=== PATIENT | male | born 1985 | race Caucasian/White ===

== ENCOUNTER 2024-06-06 16:59 | Emergency (ER) | payer OTHER, SELFPAY ==
--- NOTE | ~2024-06-06 | XR_ITS ---
EXAMINATION: XR ribs RT 2V w CXR 2V DATE: 06/06/2024 18:42 INDICATION: Right rib pain. Injury. TECHNIQUE: Frontal and lateral views of the chest and 2 views on 4 radiograph of the right ribs were obtained. COMPARISON: Chest 2 views 08/17/2018 FINDINGS: CHEST TWO VIEWS: There is no pneumonia, pleural effusion, or pneumothorax. The heart size is normal. RIGHT RIBS: There is a fracture of right fourth rib. IMPRESSION: 1. Right fourth rib fracture. Reviewed, dictated and finalized at location A. MACEUTICAL PROCESS ENGINEER
--- NOTE | ~2024-06-06 | XR_ITS ---
EXAMINATION: XR shoulder RT min 2V DATE: 06/06/2024 18:42 INDICATION: Right shoulder pain. Injury. TECHNIQUE: 4 views of right shoulder were obtained. COMPARISON: None. FINDINGS: Alignment is normal. There is a fracture of right fourth rib. Joint spaces are normal. IMPRESSION: 1. Right fourth rib fracture. Reviewed, dictated and finalized at location A. LE MACHINE OPERATOR
--- OUTSIDE RECORDS SUMMARY | 2024-06-06 17:01 | XMS_ITS | Clinical Summary ---
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
--- OUTSIDE RECORDS SUMMARY | 2024-06-06 17:01 | XMS_ITS | Encounter Summary ---
Author Organization [employer] Address 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
[2024-06-06 17:05] VITALS: BP 155/111; PULSE 104; RESP 20; TEMP 36.2; O2SAT 99
--- NOTE | 2024-06-06 18:25 | ED.UPPEXIN ---
HPI - Extremity Injury (Upper) General Chief Complaint: Extremity Injury, Upper <Marly Pulido PA-C - Last Filed: 06/07/24 02:49> Stated Complaint: R. shoulder pain, full ROM <Marly Pulido PA-C - Last Filed: 06/07/24 02:49> Time Seen by Provider: 06/06/24 18:25 <Marly Pulido PA-C - Last Filed: 06/07/24 02:49> Focused HPI: This is a 38 year old male that presents to the ER for right shoulder injury. Reports he was using a dejon to fix his car. Reports the dejon slipped and he was struck in the right shoulder. Reports bruising and pain to the area. Denies hitting his head, loss of consciousness, decreased range of motion, numbness. He is not on any blood thinners. GENERAL: Well-appearing, well-nourished, and in no acute distress. HEAD: Normocephalic, atraumatic. CHEST: Clear to auscultation. ?No respiratory distress. HEART: Regular rate and rhythm.? NEURO: ?Alert and oriented x3. Patient screened in triage and initial orders placed.? ?Additional care and disposition to be based upon?diagnostic testing and treatment. <Marly Pulido PA-C - Last Filed: 06/07/24 02:49> History of Present Illness HPI narrative: Agree with the HPI as above. Patient was able to self extricate and momentarily after being pinned by the Dejon and the car, complaining of some left-sided rib pain and shoulder pain. No overlying skin changes or bruising. Was otherwise in his normal state of health. <Hung Salazar MD - Last Filed: 06/06/24 19:42> Related Data Allergies/Adverse Reactions: Allergies Allergy/AdvReac Type Severity Reaction Status Date / Time codeine AdvReac Mild Abdominal Verified 06/06/24 19:46 Pain Penicillins AdvReac Mild Abdominal Verified 06/06/24 19:46 Pain <Marly Pulido PA-C - Last Filed: 06/07/24 02:49> Review of Systems Review of Systems: As reviewed above in HPI <Hung Salazar MD - Last Filed: 06/06/24 19:42> All systems reviewed & are unremarkable except as noted in HPI and below <Marly Pulido PA-C - Last Filed: 06/07/24 02:49> PMFSH Social History Social History: Social History Smoking status: Current every day smoker <Marly Pulido PA-C - Last Filed: 06/07/24 02:49> Exam Narrative: GENERAL: Well-appearing, well-nourished, and in no acute distress. HEAD: Normocephalic, atraumatic. EYES: PERRLA and EOMI. ENT: Nares clear, no rhinorrhea or epistaxis. Mucous membranes moist. Oropharynx without tonsillar hypertrophy exudate or other lesions. Bilateral TMs pearly scott non-bulging NECK: Supple. No adenopathy or masses. CHEST: Clear to auscultation. No respiratory distress. No wheezes rales or rhonchi HEART: Regular rate and rhythm. No murmur heard. Normal peripheral pulses. EXTREMITIES: Normal range of motion. No edema or obvious deformity. Abrasions to the top of the right shoulder SKIN: Warm, dry, no rash. NEURO: No focal deficits. Alert and oriented x3. CN II-XII grossly intact PSYCH: Normal mood and affect <Marly Pulido PA-C - Last Filed: 06/07/24 02:49> GENERAL: Well-appearing, well-nourished, and in no acute distress. HEAD: Normocephalic, atraumatic. EYES: PERRLA and EOMI. ENT: Nares clear, no rhinorrhea or epistaxis. Mucous membranes moist. Oropharynx without tonsillar hypertrophy exudate or other lesions. Bilateral TMs pearly scott non-bulging NECK: Supple. No adenopathy or masses. CHEST: Clear to auscultation. No respiratory distress. No wheezes rales or rhonchi HEART: Regular rate and rhythm. No murmur heard. Normal peripheral pulses. EXTREMITIES: Normal range of motion. No edema or obvious deformity. Abrasions to the top of the right shoulder. No overlying skin changes to the trunk, abdomen or midline back. No step-offs deformities of the C, T, L-spine. No tenderness along the sternum or ribcage. SKIN: Warm, dry, no rash. NEURO: No focal deficits. Alert and oriented x3. CN II-XII grossly intact PSYCH: Normal mood and affect <Hung Salazar MD - Last Filed: 06/06/24 19:42> Course Vital Signs Vital signs: Vital Signs Temperature 97.1 F L 06/06/24 17:05 Pulse Rate 104 H 06/06/24 17:05 Respiratory Rate 20 06/06/24 17:05 Blood Pressure 155/111 H 06/06/24 17:05 Pulse Oximetry 99 06/06/24 17:05 Oxygen Delivery Room Air 06/06/24 17:05 Temperature 97.1 F L 06/06/24 17:05 Pulse Rate 94 06/06/24 19:46 Respiratory Rate 17 06/06/24 19:46 Blood Pressure 141/99 H 06/06/24 19:46 Pulse Oximetry 100 06/06/24 19:46 Oxygen Delivery Room Air 06/06/24 17:05 <Marly Pulido PA-C - Last Filed: 06/07/24 02:49> Vital Signs Temperature 97.1 F L 06/06/24 17:05 Pulse Rate 104 H 06/06/24 17:05 Respiratory Rate 20 06/06/24 17:05 Blood Pressure 155/111 H 06/06/24 17:05 Pulse Oximetry 99 06/06/24 17:05 Oxygen Delivery Room Air 06/06/24 17:05 Temperature 97.1 F L 06/06/24 17:05 Pulse Rate 94 06/06/24 19:46 Respiratory Rate 17 06/06/24 19:46 Blood Pressure 141/99 H 06/06/24 19:46 Pulse Oximetry 100 06/06/24 19:46 Oxygen Delivery Room Air 06/06/24 17:05 <Hung Salazar MD - Last Filed: 06/06/24 19:42> MDM - Extremity Injury (Upper) MDM Narrative Medical decision making narrative: 38-year-old otherwise healthy appearing male presenting to the emergency department for injury while working on a car. He was elevating his vehicle on a dejon when it slid several inches and struck the back of his shoulder and anterior portion of his chest. Was able lift himself out of the situation momentarily and came to the ER to get evaluated. Did not hit his head or lose consciousness. Does not taking blood thinner medications. Denies any significant pain, no chest pain shortness a breath. No difficulty with ambulation or movement of the extremity. States his shoulder is slightly sore. Did not take anything for pain prior to arrival. Was otherwise in his normal state of health. Overall clinical examination is reassuring, normal pulses, warm extremities, no overlying skin changes or bruising. Full range of motion passive and active of both arms and legs. Ambulating without any assistance. No crepitus with palpation, clear breath sounds throughout both lung hodge. X-rays of the left shoulder and ribs and chest x-ray were obtained. X-rays show a right 4th rib fracture but otherwise no acute cardiothoracic process. No pneumonia, pneumothorax or effusion. Patient is overall well-appearing, not any acute distress. He was given incentive spirometer and will be discharged home with pain medications including Toradol and lidocaine patch as well as return precautions and outpatient follow-up instructions. Patient verbalized understanding was safe for discharge at this time. <Hung Salazar MD - Last Filed: 06/06/24 19:42> Medical Records Attestation: I reviewed the patient's medical records. <Hung Salazar MD - Last Filed: 06/06/24 19:42> Imaging Data Attestation: I personally reviewed and interpreted this imaging study as follows: <Hung Salazar MD - Last Filed: 06/06/24 19:42> My impression: Impressions Ribs w/Chest X-Ray 06/06/24 18:45 IMPRESSION: 1. Right fourth rib fracture. Shoulder X-Ray 06/06/24 18:46 IMPRESSION: 1. Right fourth rib fracture. <Hung Salazar MD - Last Filed: 06/06/24 19:42> Critical Care Time Critical Care Time Critical Care Time: No <Marly Pulido PA-C - Last Filed: 06/07/24 02:49> Discharge Plan Discharge Clinical Impression: Closed rib fracture Qualifiers: Encounter type: initial encounter Rib fracture type: single rib Laterality: right Qualified Code(s): S22.31XA - Fracture of one rib, right side, initial encounter for closed fracture <Marly Pulido PA-C - Last Filed: 06/07/24 02:49> Patient Disposition: Home, Self-Care <Marly Pulido PA-C - Last Filed: 06/07/24 02:49> Condition: Stable <ALEXANDER Alberts Last Filed: 06/07/24 02:49> Instructions: Antibiotic Form, How to Use an Incentive Spirometer (ED), Rib Fracture (ED) <Marly Pulido PA-C - Last Filed: 06/07/24 02:49> Additional Instructions: You have a small rib fracture in the 4th rib, no overlying skin changes, no underlying lung damage. We will send you home with lidocaine patches and Toradol for analgesia. Follow-up with regular doctor and use the incentive spirometer as instructed. Return with any new or worsening concerns at any time. <Marly Pulido PA-C - Last Filed: 06/07/24 02:49> Patient Language: [place] Citizen <Marly Pulido PA-C - Last Filed: 06/07/24 02:49> Prescriptions: New ketorolac 10 mg tablet 10 mg PO Q8H PRN (Reason: pain) 5 Days Qty: 20 0RF Rx Instructions: maximum total duration of 5 days from all oral, intranasal, or parenteral formulations lidocaine 5 % adhesive patch,medicated 1 patch topical DAILY Qty: 15 0RF Rx Instructions: leave on most painful area for up to 12 hrs <Marly Pulido PA-C - Last Filed: 06/07/24 02:49> Follow-up/Referrals: PHYSICIAN,CAPITAL PROJECT ENGINEER [Primary Care Provider] - <Marly Pulido PA-C - Last Filed: 06/07/24 02:49> Time of Disposition: 19:42 <Marly Pulido PA-C - Last Filed: 06/07/24 02:49> 19:42 <Hung Salazar MD - Last Filed: 06/06/24 19:42>
--- OUTSIDE RECORDS SUMMARY | 2024-06-06 19:25 | XMS_ITS | Encounter Summary ---
Author Organization [employer] Address 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
--- OUTSIDE RECORDS SUMMARY | 2024-06-06 19:25 | XMS_ITS | Clinical Summary ---
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
[2024-06-06 19:46] VITALS: BP 141/99; PULSE 94; RESP 17; O2SAT 100
== END 2024-06-06 19:57 | disposition home or self-care (01) ==
PROVIDERS: Emergency Provider Student in an Organized Health Care Education/Training Program
DX: S22.31XA Fracture of one rib, right side, initial encounter for closed fracture (principal); F17.200 Nicotine dependence, unspecified, uncomplicated; W20.8XXA Other cause of strike by thrown, projected or falling object, initial encounter
CPT/HCPCS: 71046; 71100; 73030; 99284